=== PATIENT | female | born 1945 | race Caucasian/White ===

== ENCOUNTER 2019-03-22 18:36 | Emergency (ER) | payer OTHER ==
--- NOTE | 2019-03-22 18:41 | PDOC ---
Rapid Medical Evaluation Time Seen by Provider: 03/22/19 18:37 Medical Evaluation: 03/22/19 18:38 I have performed a brief in-person evaluation of this patient. The patient presents with a chief complaint of:Tripped over dog today and hit head. C/o SALINAS and dizziness. Had nausea earlier that resolved. No LOC, visual changes. Not on blood thinners. No sig hx. Accompanied by family Pertinent physical exam findings:Elevated BP, well job in NAD w/ wound to frontal scalp, no focal deficit I have ordered the following:CT head The patient will proceed to the ED for further evaluation. 03/22/19 18:43 Discharge Disposition - Diagnosis Head injury Qualifiers: Encounter type: initial encounter Qualified Code(s): S09.90XA - Unspecified injury of head, initial encounter Fall Qualifiers: Encounter type: initial encounter Qualified Code(s): W19.XXXA - Unspecified fall, initial encounter - Referrals - Patient Instructions - Post Discharge Activity
[2019-03-22 18:42] VITALS: BP 156/109; PULSE 76; TEMP 98; BMI 26.4
[2019-03-22] MEDS ORDERED: traMADol HCL 50 MG TABLET PO ONE (19:35)
[2019-03-22] MEDS ORDERED: traMADol HCL 50 MG TABLET ONE (19:36)
--- NOTE | 2019-03-22 19:38 | PDOC ---
History of Present Illness - General Chief Complaint: Injury Stated Complaint: FALL Time Seen by Provider: 03/22/19 18:37 History Source: Patient Exam Limitations: Clinical Condition - History of Present Illness Initial Comments: 03/22/19 19:39 Patient with no significant past medical history presenting for evaluation of laceration to scalp status post trip on the dog and hitting the head on the wall at home prior to 2 hrs ago. Patient denies loss of consciousness. Reports mild headache with dizziness which has improved. Denies blurry vision, change in vision, nausea or vomiting. Denies any other symptoms. Patient reported last tetanus vaccine 2 years ago. Patient not on onto correlation therapy Occurred: reports: just prior to arrival Past History - Past Medical History Allergies/Adverse Reactions: Allergies Allergy/AdvReac Type Severity Reaction Status Date / Time No Known Allergies Allergy Verified 03/22/19 18:42 COPD: No - Suicide/Smoking/Psychosocial Hx Smoking History: Never smoked Review of Systems - Review of Systems Able to Perform ROS?: Yes Is the patient limited Slovenian proficient: No Constitutional: No: Malaise, Weakness HEENTM: No: Symptoms Reported, Eye Pain, Blurred Vision, Recent change in vision , Double Vision Respiratory: No: Symptoms reported Cardiac (ROS): No: Symptoms Reported ABD/GI: No: Nausea, Vomiting Musculoskeletal: Yes: Symptoms Reported, Muscle Pain (scalp over laceration area ) Integumentary: Yes: Symptoms Reported, Other (laceration to left side of anterior scalp area) Neurological: Yes: Symptoms reported, See HPI, Headache (mild). No: Pre- Existing Deficit, Seizure, Weakness, Unsteady Gait, Ataxia, Dizziness All Other Systems: Reviewed and Negative *Physical Exam - Vital Signs Last Vital Signs Temp Pulse Resp BP Pulse Ox 98 F 76 18 156/109 H 99 03/22/19 18:38 03/22/19 18:38 03/22/19 18:38 03/22/19 18:38 03/22/19 18:38 - Physical Exam General Appearance: Yes: Nourished, Appropriately Dressed. No: Apparent Distress HEENT: positive: Normal ENT Inspection Neck: positive: Supple Respiratory/Chest: negative: Respiratory Distress, Accessory Muscle Use Musculoskeletal: positive: Normal Inspection Extremity: positive: Normal Inspection Integumentary: positive: Normal Color, Other (3cm superficial linear laceration to left side of frontal lobe of scalp with minimal bleeding.). negative: Cyanotic, Swelling, Ecchymosis Neurologic: positive: court usher II-XII NML intact, Fully Oriented, Alert, Normal Mood/ Affect, Normal Response Procedures - Laceration/Wound Repair Left Anterior Head Wound Length: 2.6 to 5.0 cm (3cm) Wound Explored: clean, no foreign body present Wound's Depth, Shape: superficial, linear Irrigated w/ Saline: Yes Betadine Prep: Yes Anesthesia: 1% Lidocaine Amount of Anesthetic (ccs): 1 Wound Repaired With: Marilyn (3 marilyn) Layer Closure: No Sterile Dressing Applied: No Splint Applied: No Sling Applied: No Medical Decision Making - Medical Decision Making 03/22/19 19:41 Patient with no significant past medical history presenting for evaluation of laceration to scalp status post trip on the dog and hitting the head on the wall at home prior to 2 hrs ago. Patient denies loss of consciousness. Reports mild headache with dizziness which has improved. Denies blurry vision, change in vision, nausea or vomiting. Denies any other symptoms. Patient reported last tetanus vaccine 2 years ago. Patient not on onto correlation therapy Exam significant for 3 cm superficial linear laceration to frontal aspect of left side of scalp with minimal bleeding. Normal neuro exam. Wound cleaned with Betadine and irrigated with normal saline. Wound closed with 3 marilyn after area infiltrated with 1 mL 1% lidocaine. Patient tolerated procedure well. Ultram 50 mg by mouth given for pain. Head CT w/o contrast shows no intracranial bleeding or pathology Patient is stable for discharge with strict follow-up instructions given to both patient and family members to look for any change in behavior, vomiting, excessive sleepiness, dizziness and worsening headache with advised to come back to ED if she develops symptoms *DC/Admit/Observation/Transfer Diagnosis at time of Disposition: Head injury Qualifiers: Encounter type: initial encounter Qualified Code(s): S09.90XA - Unspecified injury of head, initial encounter Fall Qualifiers: Encounter type: initial encounter Qualified Code(s): W19.XXXA - Unspecified fall, initial encounter Scalp laceration Qualifiers: Encounter type: initial encounter Qualified Code(s): S01.01XA - Laceration without foreign body of scalp, initial encounter - Discharge Dispostion Disposition: HOME Condition at time of disposition: Stable Decision to Admit order: No - Referrals - Patient Instructions Printed Discharge Instructions: DI for Laceration Repair -- [place] Additional Instructions: Keep wound clean and dry for the next 24 hours. Apply Neosporin or bacitracin to wound twice a day. Take Tylenol as needed for pain. Follow-up in one week for staple removal. come back to Emergency room if worsening headache with nausea and vomiting or severe dizziness - Post Discharge Activity
== END 2019-03-22 19:41 | disposition home or self-care (01) ==
LOC: JERFT 18:36
PROC: 0HQ0XZZ Repair Scalp Skin, External Approach (ICD-10-PCS; principal; 2019-03-22)
DX: S01.01XA Laceration without foreign body of scalp, initial encounter (principal); W01.0XXA Fall on same level from slipping, tripping and stumbling without subsequent striking against object, initial encounter; Y93.K1 Activity, walking an animal; Y92.009 Unspecified place in unspecified non-institutional (private) residence as the place of occurrence of the external cause
CPT/HCPCS: 70450-TC; 99282-25